=== PATIENT | male | born 1990 | race African-American/Black ===

== ENCOUNTER 2018-08-28 16:39 | Emergency (ER) | payer SELFPAY ==
[~2018-08-28] VITALS: Ht 188 cm; Wt 145.0 kg
[2018-08-28 16:52] VITALS: BP 123/87
--- NOTE | 2018-08-28 17:29 | NUR ---
Patient brought in by EMS for difficulty coping with social stressors causing him to have fleeting thoughts of harming himself. Patient reports that he is from [place], travelled to [place] where he was look for a place to live and hospitalized briefly at a psychiatric facility. He came to [place] and [facility] but has some frustration with the process of finding housing. Patient states that he now feels safe and is not currently having suicidal ideation, requests to speak with a case preparer and liner.
[2018-08-28] MEDS ORDERED: LORazepam 0.5MG TABLET PO ONE (17:30)
[2018-08-28] MEDS ORDERED: LORazepam 0.5MG TABLET ONE (17:32)
--- NOTE | 2018-08-28 17:39 | NUR ---
Plan of care updated with patient, remains calm and compliant at this time.
--- NOTE | 2018-08-28 18:13 | NUR ---
Discharge instructions discussed with patient including when to return to emergency department. Patient denies suicidal ideation at time of discharge, reporting anxiety regarding his living situation. Patient requests a "hotel voucher" it is explained to patient that we do not have these services. Community resources with contact information provided to patient. Bus pass provided to patient. Patient given meal tray, following discharge instructions patient is using his cell phone and eating dinner in no acute distress.
--- NOTE | 2018-08-28 18:37 | NUR ---
Patient refusing to leave, becomes verbally abusive to staff. Security at bedside to attempt assist patient in leaving department.
--- NOTE | 2018-08-28 18:42 | NUR ---
Patient continues to refuse to leave, patient now medically cleared for nursing home, [place] [employer] called to remove patient.
--- NOTE | 2018-08-28 19:02 | NUR ---
SECURITY AND [employer] AT BEDSIDE TO REMOVE PT FROM ROOM. PT COOPERATIVE WITH [employer] TO LEAVE ON HIS OWN. PT GIVEN TAXI VOUCHER TO [facility].
== END 2018-08-28 19:13 | disposition home or self-care (01) ==
LOC: ED 19:07
DX: Z72.9 Problem related to lifestyle, unspecified (principal)
CPT/HCPCS: 99283